=== PATIENT | male | born 1985 | race Hispanic/Latino ===

== ENCOUNTER 2018-05-17 13:04 | Emergency (ER) | payer BC, SELFPAY ==
[2018-05-17 13:06] VITALS: BP 139/95; PULSE 80; RESP 14; TEMP 36.8; O2SAT 97; BMI 39.8
--- NOTE | 2018-05-17 15:08 | CT_ITS ---
STUDY: CT ABDOMEN AND PELVIS WITH CONTRAST REASON FOR EXAM: Male, 32 years old. Right upper quadrant pain. RADIATION DOSAGE (If Supplied By Facility): CTDIvol = ( 17.07 ) mGy, DLP = ( 1451.82 ) mGycm TECHNIQUE: Transaxial images were obtained from the dome of the diaphragm to the symphysis pubis without oral contrast. 100 ml of Isovue 300 contrast was administered. Sagittal and coronal images were reconstructed. Individualized dose optimization techniques were used for this CT. COMPARISON: None. FINDINGS: The visualized lung bases are unremarkable. The visualized portions of the heart are within normal limits. There is decreased attenuation of the liver consistent with steatosis. There is mild hepatomegaly. There is non-visualization of the gallbladder, which may be secondary to either contraction or a prior cholecystectomy. Normal spleen. Normal pancreas. Normal bilateral adrenal glands. Normal right kidney. Normal left kidney. Normal visualized stomach. Normal small intestine. Normal colon. The appendix is visualized and appears normal. Normal abdominal aorta. Normal inferior vena cava. Normal retroperitoneum. Normal urinary bladder. Normal abdominal wall. Normal osseous structures. CT/Abdomen/Pelvis WITH Contrast IMPRESSION: Fatty infiltration of the liver associated with mild hepatomegaly. Electronically Signed: Elma Romero MD at 17:39 EST Tel , Service support ,
--- NOTE | 2018-05-17 15:11 | ED.VISSUMM ---
- ER Visit Summary Date of Service: 05/17/18 Chief Complaint: Abdominal pain, vomiting diarrhea History of Present Illness: The patient is a 32 M who presents for 5 days of watery diarrhea, vomiting and right upper quadrant abdominal pain. Patient states symptoms are worse after meals. He has discomfort in the right upper quadrant and a burning sensation in the epigastrium, but is exacerbated by food. He then will have foul-smelling belches and watery diarrhea. He has had vomiting as well. He tried antacids without relief. Symptoms are improved by not eating, and patient has not eaten anything today due to his symptoms. He still has had discomfort. He had a similar episode of 3 days of symptoms last week that resolved. Patient is status post cholecystectomy. He denies fever, chest pain, shortness of breath, URI symptoms, urinary symptoms, radiation of pain into the back or other parts of the abdomen. No medical history, no alcohol use, no recent travel, no recent antibiotic use. Physical Examination: Vital signs: afebrile, hemodynamically stable, no hypoxia on room air General: well nourished, well developed, in no distress Skin: warm, dry, no rash, no pallor HEENT: normocephalic and atraumatic; PERRL, EOMI, moist mucous membranes Cardiovascular: regular rate and rhythm without murmurs, no peripheral edema, 2+ pulses all distal extremities Respiratory: No increased work of breathing, lungs are clear to auscultation bilaterally, no rales, rhonchi or wheezing Abdominal: Abdomen is soft, tender in the right upper quadrant with hyperactive bowel sounds, no guarding or rebound, no masses MSK: Moves all extremities, no deformities, normal strength Neuro: Awake and alert, oriented ?4. No facial droop, sensation and motor function intact and symmetric Test Results: Abnormal Lab Results 05/17/18 05/17/18 15:30 15:30 WBC 6.8 RBC 5.60 Hgb 16.2 Hct 47.8 MCV 85.4 MCH 28.9 MCHC 33.9 RDW 13.5 RDW Differential 41.5 Plt Count 274 MPV 10.9 Immature Gran % (Auto) 0.100 Neut % (Auto) 54.9 Lymph % (Auto) 29.9 [place] % (Auto) 6.8 Eos % (Auto) 8.2 H Baso % (Auto) 0.1 Absolute Neuts (auto) 3.7 Absolute Lymphs (auto) 2.03 Total Counted Not Reportable Sodium 141 Potassium 3.9 Chloride 107 Carbon Dioxide 27.0 Anion Gap 7 BUN 16 Creatinine 0.91 Estim Creat Clear Calc 119.22 Est GFR (MDRD) Af Amer 123 Est GFR (MDRD) Non-Af 102 BUN/Creatinine Ratio 17.6 Glucose 81 Calcium 8.6 Total Bilirubin 0.50 AST 22 ALT 60 Alkaline Phosphatase 86 Total Protein 7.6 Albumin 3.9 Globulin 3.7 Albumin/Globulin Ratio 1.1 Lipase 95 Clinical Impression(s) from Imaging Studies Abdomen/Pelvis CT 05/17/18 15:08 IMPRESSION: Fatty infiltration of the liver associated with mild hepatomegaly. Electronically Signed: Elma Romero MD at 17:39 EST Tel , Service support , Medications Given Discontinued Medications Sodium Chloride () 1,000 mls @ 1,000 mls/hr IV .Q1H ONE Stop: 05/17/18 16:06 Last Admin: 05/17/18 15:29 Dose: 1,000 mls/hr Ketorolac Tromethamine (Toradol) 30 mg IV X1 ONE Stop: 05/17/18 15:08 Last Admin: 05/17/18 15:29 Dose: 30 mg Ondansetron HCl (Zofran) 4 mg IV X1 ONE Stop: 05/17/18 15:08 Last Admin: 05/17/18 15:30 Dose: 4 mg Emergency Department Course and Treatment: Patient was given IV fluids due to fluid loss from vomiting and diarrhea. He was given Toradol and Zofran for symptomatic relief. Labs and CT abdomen and pelvis were performed to look for any colitis, pancreatitis, possible common bile duct pathology, or other acute intra-abdominal process. Patient's labs showed no leukocytosis, no significant electrolyte derangements, no hepatic derangements, and a normal lipase. CT of the abdomen and pelvis were remarkable only for hepatic steatosis. Patient was reevaluated and was feeling better. We discussed the results of his CT scan and that he should follow-up with his doctor to discuss the possibility of needing an upper endoscopy. Patient was discharged on omeprazole and sucralfate. He was given follow-up with GI as well. Patient agreed with this plan was discharged home in improved condition. Treatment Plan: [] Disposition: [] Impression: Gastritis, hepatic steatosis This note was generated with [employer] dictation software. It may contain incorrect words, spelling, and punctuation that were not noted in review of the chart prior to signing ED Disposition - Plan for ED Patient: Disposition: Home or Assisted Living Chief Complaint: Abd Pain Instructions: ED Gastritis Prescriptions: RX: Omeprazole 40 mg PO DAILY #30 capsule.dr RX: Sucralfate 1 gm PO 4X/DAY #56 tab Referrals: Vega Bianchi MD [Primary Care Provider] - 3-5 Days Rajendra Harrell MD [NON-STAFF] - 1 Week if not improving Additional Instructions: Use the omeprazole daily and the sucralfate 4 times daily to help with upset stomach. You may need an upper endoscopy, where a camera is used to look in your stomach, to see if there are other causes of your abdominal pain. Please follow-up with your doctor and/or with a diamond die polisher for further workup. If you have any worsening of your condition or any new concerning symptoms, please return immediately to the emergency department for another evaluation.
[2018-05-17] MEDS: 0.9% Normal Saline 1,000 ML 1000 ML IV (15:29)
[2018-05-17] MEDS: Ketorolac 30 MG/ML Syringe IV (15:29)
[2018-05-17] MEDS: Ondansetron 4 MG/2 ML Vial IV (15:30)
[2018-05-17 15:55] LABS: Absolute Lymphocyte Count 2.03 X10^3/ul (0.83-4.51); Absolute Neutrophil Count 3.7 X10^3/uL (2.0-7.7); Basophil# 0.01 X10^3/uL; Basophil% 0.1 % (0-1); Eosinophil# 0.56 X10^3/uL; Eosinophils% 8.2 % (0-5); Hematocrit 47.8 % (40-54); Hemoglobin 16.2 g/dl (13.0-16.5); Lymphocyte # 2.03 X10^3/ul (4.0); Lymphocyte % 29.9 % (19-41); Mean Corp Hgb Conc 33.9 g/gl (32-36); Mean Corpuscular Hgb 28.9 pg (27.0-32.0); Mean Corpuscular Volume 85.4 fL (80-94); Mean Platelet Vol. 10.9 fl (6.2-12.0); Monocyte# 0.46 X10^3/uL; Monocyte% 6.8 % (0-10); Neutrophil # 3.72 X10^3/uL (2.7-7.7); Neutrophil % 54.9 % (47-70); Platelet Count 274 K/mm3 (150-450); RBC Distribution Width CV 13.5 % (11.6-14.6); RBC Distribution Width SD 41.5 fl (35.1-43.9); White Blood Count 6.8 K/mm3 (4.4-11.0)
[2018-05-17 15:58] LABS: POSITIVE COUNT NO; POSITIVE DIFFERENTIAL NO; POSITIVE MORPHOLOGY NO
[2018-05-17 16:24] LABS: ALB/GLOB Ratio 1.1 RATIO (0.9-2.4); AST(SGOT) 22 U/L (15-37); Alanine Aminotransfer ALT/SGPT 60 U/L (16-61); Albumin, Serum 3.9 g/dL (3.2-5.0); Alkaline Phosphatase 86 U/L (45-117); Anion Gap 7 (5-15); BUN 16 mg/dL (7-18); BUN/Creat Ratio 17.6 RATIO (10-20); Calcium,Total 8.6 mg/dL (8.5-10.1); Chloride 107 mmol/L (98-107); Creatinine, Serum 0.91 mg/dL (0.70-1.30); EST Glomerular Filtration Rate 102 mL/min (>60); Est Glom Filt Rate - Afr Amer 123 mL/min (>60); Estimated Creatinine Clearance 119.22 ml/min; Globulin 3.7 g/dL (2.2-4.2); Glucose 81 mg/dL (74-106); Lipase 95 U/L (73-393); Potassium 3.9 mmol/L (3.5-5.1); Protein, Total 7.6 g/dL (6.4-8.2); Sodium Level 141 mmol/L (136-145)
[2018-05-17 16:55] VITALS: RESP 14
--- NOTE | 2018-05-17 18:17 | DCINST.ED_ITS ---
ED Disposition - Plan for ED Patient: Disposition: Home or Assisted Living Chief Complaint: Abd Pain Instructions: ED Gastritis Prescriptions: Omeprazole 40 mg PO DAILY #30 capsule. Sucralfate 1 gm PO 4X/DAY #56 tab Referrals: Vega Bianchi MD [Primary Care Provider] - 3-5 Days Rajendra Harrell MD [NON-STAFF] - 1 Week if not improving Additional Instructions: Use the omeprazole daily and the sucralfate 4 times daily to help with upset stomach. You may need an upper endoscopy, where a camera is used to look in your stomach, to see if there are other causes of your abdominal pain. Please follow-up with your doctor and/or with a linux server engineer for further workup. If you have any worsening of your condition or any new concerning symptoms, please return immediately to the emergency department for another evaluation.
[2018-05-17 18:51] VITALS: PULSE 77; RESP 12; O2SAT 97
== END 2018-05-17 18:51 | disposition home or self-care (01) ==
PROVIDERS: Emergency Provider Emergency Medicine; Family Provider Family Medicine; PCP Family Medicine
DX: K29.70 Gastritis, unspecified, without bleeding (principal); K76.0 Fatty (change of) liver, not elsewhere classified; E66.9 Obesity, unspecified; Z90.49 Acquired absence of other specified parts of digestive tract
CPT/HCPCS: 74177; 80053; 83690; 85025; 96361; 96374; 96375; 99283; J7030; Q9967; J2405

== ENCOUNTER 2018-07-09 08:44 | Emergency (ER) | payer BC, SELFPAY ==
[2018-07-09 08:46] VITALS: BP 112/85; PULSE 117; RESP 13; TEMP 35.8; O2SAT 95; BMI 37.3
--- NOTE | 2018-07-09 09:14 | ED.DCSUM_ITS ---
- ER Visit Summary Date of Service: 07/09/18 Chief Complaint: Abdominal pain History of Present Illness: The patient is a 32 M who presents with abdominal pain of several months duration. Patient states that since March he gets a sharp right upper quadrant pain that seems to travel to the epigastrium followed shortly thereafter by significant diarrhea. He notes nausea and vomiting. He notes food does not taste good. He notes significant indigestion. Last vomited this morning. He states that he saw primary care. He was in the emergency department in May had negative labs and a negative CT. He is seeing gastroenterology. He states that they have done a hepatitis panel that was negative as well as H. pylori and gluten testing that was negative. He states that he has a 20 pound weight loss over the past 4 weeks. He states that on Thursday he is scheduled to have a endoscopy and colonoscopy with Dr. Krause. He has had prior cholecystectomy and umbilical hernia. He states that this morning he had more severe pain than normal. It got better after bowel movement here in the department. Physical Examination: Afebrile noted tachycardia at 117 Gen: Well-nourished well-developed Head: Normocephalic atraumatic Eyes: Perrl EOMI ENT: TMs clear no rhinorrhea moist mucous membranes Neck: Supple no lymphadenopathy no JVD nontender CVS: Regular rate rhythm no murmurs normal S1-S2 Respiratory: No distress clear to auscultation bilaterally chest nontender Abdomen: Soft nontender nondistended normal bowel sounds no masses Back: Nontender Extremity: Nontender no edema Skin: Normal color no rash Neuro: alert orientated ?3 CN II-XII intact normal strength sensation reflexes gait cerebellar Psych: Normal affect normal mood Test Results: CBC CMP and lipase were normal. Emergency Department Course and Treatment: She received Bentyl. Repeat examination shows his heart rate is 86. Patient appears stable and will be discharged home to continue his workup as an outpatient. Impression: 1. Abdominal pain This note was generated with [employer] dictation software. It may contain incorrect words, spelling, and punctuation that were not noted in review of the chart prior to signing ED Disposition - Plan for ED Patient: Disposition: Home or Assisted Living Instructions: ED Abdominal Pain Unkn Cause Prescriptions: Dicyclomine HCl [Bentyl] 10 mg PO TIDAC #20 cap Referrals: Wilfred Corbett MD [STAFF PHYSICIAN] - Keep Miguel appointment
[2018-07-09 09:41] LABS: Absolute Lymphocyte Count 1.33 X10^3/ul (0.83-4.51); Absolute Neutrophil Count 5.2 X10^3/uL (2.0-7.7); Basophil# 0.04 X10^3/uL; Basophil% 0.5 % (0-1); Eosinophil# 0.25 X10^3/uL; Eosinophils% 3.3 % (0-5); Hematocrit 49.5 % (40-54); Hemoglobin 16.6 g/dl (13.0-16.5); Lymphocyte # 1.33 X10^3/ul (4.0); Lymphocyte % 17.8 % (19-41); Mean Corp Hgb Conc 33.5 g/gl (32-36); Mean Corpuscular Hgb 28.4 pg (27.0-32.0); Mean Corpuscular Volume 84.6 fL (80-94); Mean Platelet Vol. 10.7 fl (6.2-12.0); Monocyte# 0.65 X10^3/uL; Monocyte% 8.7 % (0-10); Neutrophil % 69.6 % (47-70); POSITIVE COUNT NO; POSITIVE DIFFERENTIAL NO; POSITIVE MORPHOLOGY NO; Platelet Count 329 K/mm3 (150-450); RBC Distribution Width CV 13.6 % (11.6-14.6); RBC Distribution Width SD 41.9 fl (35.1-43.9); Red Blood Count 5.85 M/mm3 (4.6-6.2); White Blood Count 7.5 K/mm3 (4.4-11.0)
[2018-07-09 09:45] LABS: AST(SGOT) 24 U/L (15-37); Alanine Aminotransfer ALT/SGPT 56 U/L (16-61); Albumin, Serum 4.2 g/dL (3.2-5.0); Alkaline Phosphatase 101 U/L (45-117); Anion Gap 7 (5-15); BUN 20 mg/dL (7-18); BUN/Creat Ratio 21.4 RATIO (10-20); Calcium,Total 9.1 mg/dL (8.5-10.1); Chloride 110 mmol/L (98-107); Creatinine, Serum 0.94 mg/dL (0.70-1.30); EST Glomerular Filtration Rate 98 mL/min (>60); Est Glom Filt Rate - Afr Amer 119 mL/min (>60); Estimated Creatinine Clearance 115.41 ml/min; Globulin 4.3 g/dL (2.2-4.2); Glucose 98 mg/dL (74-106); Lipase 137 U/L (73-393); Potassium 3.8 mmol/L (3.5-5.1); Protein, Total 8.5 g/dL (6.4-8.2); Sodium Level 139 mmol/L (136-145)
[2018-07-09] MEDS: Dicyclomine 10 MG Capsule 20 MG PO (09:47)
[2018-07-09 10:48] VITALS: BP 116/79; PULSE 87; RESP 16; O2SAT 100
[2018-07-09 11:24] VITALS: BP 120/73; PULSE 65; RESP 14; O2SAT 98
== END 2018-07-09 11:27 | disposition home or self-care (01) ==
PROVIDERS: Emergency Provider Emergency Medicine; Family Provider Family Medicine; PCP Family Medicine
DX: R10.9 Unspecified abdominal pain (principal); R11.2 Nausea with vomiting, unspecified; R19.7 Diarrhea, unspecified; Z90.49 Acquired absence of other specified parts of digestive tract
CPT/HCPCS: 80053; 83690; 85025; 96372; 99283; A4216

== ENCOUNTER 2018-07-12 10:32 | Day surgery (SDC) | payer BC, SELFPAY ==
[2018-07-12 10:51] VITALS: BP 141/87; PULSE 71; RESP 16; TEMP 36.7; BMI 37.3
[2018-07-12 11:07] VITALS: BP 141/87; PULSE 71; RESP 16; TEMP 36.7; O2SAT 100; BMI 37.3
--- NOTE | 2018-07-12 11:15 | COLBX_PTH ---
PATIENT: JENY ATWOOD LOC: EN U#:[id number] AGE/SX: 32/M ROOM: RE07/12/[address]: Dr. Navya Mack MD : 1985 BED: DIS: 07/12/2018 SPEC #: [id number] RECD: 07/12/18 13:24 STATUS: CHRISTIANO MARICARMEN #: [id number] LILIANA: 07/12/18 11:[address]: Navya Mack DEPT: SURGICAL PATHOLOGY RECD BY: Adiel Terrell ENTERED: 07/12/18 14:01 SP TYPE: COLON BX OTHR DR: Dr. Vega Bianchi MD Tissues: A - Duodenum, NOS B - Gastric mucous membrane C - Gastric mucous membrane D - COLON BIOPSY Procedures: Special Stain Group II Surgery Specimen Level IV Alcian Blue/PAS (control) HEADER OPERATION: [place] [place] DIAGNOSIS: Functional bowel disorder and RUQ pain TISSUE SUBMITTED: A - Second portion of duodenum biopsy, B - Antral biopsy for histo and H. pylori, C - GE junction biopsy, D - Random colon biopsies MICROSCOPIC DIAGNOSIS A. Second portion of duodenum, biopsy: Fragments of duodenal mucosa with moderate nonspecific chronic inflammation. B. Antral biopsy: Mild gastritis. See microscopic description and comment. C. GE junction, biopsy: A fragment of gastric mucosa with chronic inflammation. Intestinal metaplasia (goblet cell metaplasia) is not identified. See comment. D. Colon, random biopsy: Fragments of colonic mucosa, no pathologic diagnosis. SJ:marcelo 07/13/18 COMMENT B. The results of immunohistochemistry for Helicobacter pylori will be reported separately ([id number]). C. Alcian blue/PAS stain with matched control is used in the evaluation of the specimen. MICROSCOPIC DESCRIPTION Slides are reviewed. B. The specimen shows fragments of gastric mucosa with chronic inflammatory cell infiltrates in the lamina propria consisting of lymphocytes and plasma cells, consistent with mild chronic gastritis. GROSS DESCRIPTION A - Received in fixative is one container labeled with the patient's name and designated second portion duodenum biopsy. The specimen consists of multiple irregular fragments of light lim soft tissue that in aggregate measure 1 x 0.2 x 0.1 cm. The specimen is totally submitted in one cassette. B - Received in fixative is one container labeled with the patient's name and designated antral biopsy. The specimen consists of one irregular fragment of light lim soft tissue that measures 0.3 x 0.3 x 0.1 cm. The specimen is totally submitted in one cassette. C - Received in fixative is one container labeled with the patient's name and designated GE junction biopsy. The specimen consists of one irregular fragment of light lim soft tissue that measures 0.3 x 0.2 x 0.1 cm. The specimen is totally submitted in one cassette. D - Received in fixative is one container labeled with the patient's name and designated random colon biopsy. The specimen consists of multiple irregular fragments of light lim soft tissue that in aggregate measure 2 x 0.5 x 0.1 cm. The specimen is totally submitted in one cassette. / SJ:rg 07/12/18 TC:3 CPT: 18180 x4, 71891
--- NOTE | 2018-07-12 11:15 | IMM_PTH ---
PATIENT: JENY ATWOOD LOC: EN U#:[id number] AGE/SX: 32/M ROOM: RE07/12/[address]: Dr. Navya Mack MD : 1985 BED: DIS: 07/12/2018 SPEC #: [id number] RECD: 07/12/18 14:39 STATUS: CHRISTIANO REBlanca #: [id number] LILIANA: 07/12/18 11:[address]: Navya Mack DEPT: IMMUNOHISTOCHEMISTRY RECD BY: Kellee Neal ENTERED: 07/12/18 14:40 SP TYPE: IMMUNO OTHR DR: Dr. Vega Bianchi MD Tissues: B - Stomach, NOS Procedures: H Pylori (initial) PHYSICIAN & INSTITUTION [place] [address] SPECIMEN INFORMATION: Tissue Source: B - Antral biopsy Clinical Info: Functional bowel disorder and RUQ pain Specimen Number: [id number] CPT code: 71713 METHODOLOGY: Deparaffinized sections of prefer/formalin-fixed tissue or PAP/DQ stained slides are incubated with monoclonal/polyclonal antibodies/oligonucleotide probes. Localization is made via biotin free immunoperoxidase method. Appropriate controls are performed and reacted as expected. Results on target cell population are indicated in the following table: RESULTS: ANTIBODY / CLONE RESULT Block B H Pylori (polyclonal) negative These tests were developed and their performance characteristics determined by [facility]. They may not have been cleared or approved by the U.S. Food and Drug Administration. The FDA has determined that such clearance or approval is not necessary. INTERPRETATION: B. Antral biopsy: Negative for Helicobacter pylori organisms. AM:marcelo 07/14/18
[2018-07-12 11:55] VITALS: BP 112/65; BP 141/87; PULSE 87; RESP 16; TEMP 36.9; O2SAT 100
--- NOTE | 2018-07-12 11:57 | OP.ENDO_ITS ---
07/12/2018 Vega Bianchi [address] [place] [address] Re : Upper GI endoscopy procedure for Mac Colon Robert Dear Dr. Bianchi This procedure was performed on Thursday, July 12, 2018. My impressions and recommendations are as follows: Impressions : - Z-line irregular. Biopsied. - Normal stomach. Biopsied. - Normal first portion of the duodenum and second portion of the duodenum. Biopsied. Recommendations : - Discharge patient to home (ambulatory). - Resume previous diet. - Continue present medications. - Return to GI office after studies are complete. My findings are described in the full procedure note, which is enclosed. If I can be of further assistance, please feel free to contact me at Doctor phone number(s): , Work: . Sincerely, MD Navya Edwards MD 07/12/2018 11:56:51 AM This report has been signed electronically.
[2018-07-12 12:00] VITALS: BP 141/87; PULSE 83; RESP 16; O2SAT 96
--- NOTE | 2018-07-12 12:00 | OP.ENDO_ITS ---
07/12/2018 Vega Bianchi [address] [place] [address] Re : Colonoscopy procedure for Mac Colon Robert Dear Dr. Bianchi This procedure was performed on Thursday, July 12, 2018. My impressions and recommendations are as follows: Impressions : - Non-bleeding internal hemorrhoids. - Biopsies were taken with a cold forceps from the entire colon for evaluation of microscopic colitis. Recommendations : - Discharge patient to home (ambulatory). - Resume previous diet. - Continue present medications. - Await pathology results. - Return to GI office after studies are complete - call for appointment in 1-2 weeks. - No repeat colonoscopy due to age. My findings are described in the full procedure note, which is enclosed. If I can be of further assistance, please feel free to contact me at Doctor phone number(s): , Work: . Sincerely, MD Navya Edwards MD 07/12/2018 11:59:31 AM This report has been signed electronically.
[2018-07-12 12:05] VITALS: BP 108/72; BP 141/87; PULSE 78; RESP 16; O2SAT 99
[2018-07-12 12:10] VITALS: BP 106/62; BP 141/87; PULSE 76; RESP 16; TEMP 36.3; O2SAT 96
== END 2018-07-12 12:35 | disposition home or self-care (01) ==
LOC: EN 10:33 → AC 10:35
PROVIDERS: Family Provider Family Medicine; PCP Family Medicine; Referring Provider Family Medicine; Visit Provider Surgery
PROC: 0DJD8ZZ Inspection of Lower Intestinal Tract, Via Natural or Artificial Opening Endoscopic (ICD-10-PCS; CPT 45378; principal; 2018-07-12 11:10)
DX: R10.9 Unspecified abdominal pain (principal); K22.8 Other specified diseases of esophagus; K30 Functional dyspepsia; K64.8 Other hemorrhoids; G47.33 Obstructive sleep apnea (adult) (pediatric); K59.1 Functional diarrhea; Z90.49 Acquired absence of other specified parts of digestive tract
CPT/HCPCS: 43239; 45380; 88305; 88313; 88342; J7120

== ENCOUNTER 2025-03-12 16:30 | Emergency (ER) | payer OTHER, SELFPAY ==
[2025-03-12 16:31] VITALS: BP 133/93; PULSE 88; RESP 20; TEMP 36.1; O2SAT 98; BMI 42.5
--- NOTE | 2025-03-12 16:32 | RAD_ITS ---
PROCEDURE: RAD/Ankle min 3 Views
[2025-03-12 17:47] VITALS: BP 133/93; PULSE 88; RESP 20; TEMP 36.1; O2SAT 98
--- NOTE | 2025-03-12 17:55 | EX.ED.DYSGE1 ---
HPI History of Present Illness Chief Complaint: Lower Extremity Injury Detail of Chief Complaint: Injury left ankle Informant: patient Onset/Context/Timing Onset: Today and Hours Context: Sudden Onset Timing: Continuous Quality: Pain outside left ankle Location: Outer left ankle Current Severity: Mild Maximum Severity: Moderate Worsened by: Palpation and weightbearing Relieved by: Nothing Associated Symptoms Associated Symptoms: None Narrative Narrative: Patient is a 39-year-old male with history of diabetes. He presents with injury to his left ankle. He was hiking. He had a plantar inversion mechanism injury. He localizes the pain to the lateral malleolus. He denies paresthesia, anesthesia buttocks. He denies history peptic ulcer disease, kidney disease or hypertension. He was diagnosed with diabetes 2 years ago. He denies prior injury to the ankle. Prior similar symptoms: No Recent Illness/Hospitalization: No PFSH PFS Medical History Bursitis, prepatellar, left Left knee pain Hypercholesteremia Type 2 diabetes mellitus Right knee pain Home Medications ?Medication ?Instructions ?Recorded ?Last Taken ?Type atorvastatin 40 mg tablet 40 mg PO QDAY 06/13/24 Unknown History meloxicam 7.5 mg tablet 7.5 mg PO BID PRN swelling 2 weeks 06/13/24 Unknown Rx #30 tabs metformin 500 mg tablet,extended 1,000 mg PO QAM 06/13/24 Unknown History release 24 hr Allergy/AdvReac Type Severity Reaction Status Date / Time No Known Allergies Allergy Verified 03/12/25 16:30 Surgical History S/P lateral meniscus repair of left knee S/P cholecystectomy S/P hernia repair Social History Smoking Status: Never smoker ROS ROS ED Musculoskeletal Musculoskeletal: Reports other Details: Pain left ankle Integumentary Denies Abrasions or rash Neurologic Neurologic: Denies paresthesias or weakness Hematologic/Lymphatic Hematologic/Lymphatic: Reports systems reviewed and no addt'l complaints, except as documented EXAM Physical Exam Const Vital Signs: 03/12/25 16:31 03/12/25 17:47 Temperature 97 F L 97 F L Temperature Source Temporal Pulse Rate 88 88 Respiratory Rate 20 H 20 H Blood Pressure 133/93 H 133/93 H Blood Pressure Mean 106 106 Pulse Ox 98 98 Oxygen Delivery Method Room Air Positive well nourished and well developed General Appearance ED: well developed and NAD; Negative for pallor HEENT HEENT Narrative: HEENT is grossly unremarkable. Eyes PERRL and EOMs intact bilaterally General Eye ED: Negative for scleral icterus Resp normal respiratory effort Cardio regular rate and regular rhythm Extremity Negative for normal to inspection Extremity Narrative: There is swelling lateral aspect of the left ankle. There is pain ovation over the lateral malleolus, anterior talofibular ligament. There is no pain ovation of the calcaneofibular ligament or the medial malleolus. There is no laxity with drawer testing. There is no pain to palpation of the base of the fifth metatarsal. DP pulse is palpable. There is no abrasion or discoloration of the skin over the lateral malleolus. Neuro oriented x3 and CN's II-XII intact bilaterally Sensorium / Orientation: alert Skin no rashes or lesions noted, no wounds and skin turgor normal General Skin Exam: Negative for jaundice or pallor MDM MDM MDM Narrative Medical decision making narrative: X-ray was obtained per nursing protocol. Differential is sprain versus fracture. Radiography Chest X-Ray - ED: Read by ED Physician (Three-view x-ray of the ankle was independent reviewed interpreted by me as negative for fracture, subluxation or dislocation. There is no asymmetry of the mortise. There is no evidence of fracture the base of the fifth metatarsal.) Diagnostic Testing: Clinical Impression(s) from Imaging Studies Ankle X-Ray 03/12/25 16:32 IMPRESSION: As above. [facility] Triage Chief Complaint: Lower Extremity Injury ED Provider: Trae Sahu Dx/Rx/DC Orders Clinical Impression: Sprain of anterior talofibular ligament of left ankle, Type 2 diabetes mellitus, Elevated blood pressure reading without diagnosis of hypertension Instructions: ED Ankle Sprain (Adult) Prescriptions: No Action metformin 500 mg tablet extended release 24 hr 1,000 mg PO QAM atorvastatin 40 mg tablet 40 mg PO QDAY meloxicam 7.5 mg tablet 7.5 mg PO BID MDD 2 PRN (Reason: swelling) 14 Days Qty: 30 1RF Primary Care Provider: Lala Kiran Referrals: Lala Kiran MD [Primary Care Provider, Internal Medicine] - 10-14 Days if not better Activity Restrictions/Additional Instructions: 1. Ice to left ankle 6-10 times a day. 2. Wear a flat shoe until you are pain-free. 3. Drawl the alphabet with your left foot 4 times a day. Print Language: Nicaraguan Disposition Disposition: Home, Self Care
== END 2025-03-12 18:15 | disposition home or self-care (01) ==
PROVIDERS: Emergency Provider Emergency Medicine; PCP Internal Medicine; Visit Provider Emergency Medicine
DX: S93.492A Sprain of other ligament of left ankle, initial encounter (principal); E11.9 Type 2 diabetes mellitus without complications; E78.00 Pure hypercholesterolemia, unspecified; R03.0 Elevated blood-pressure reading, without diagnosis of hypertension; X50.9XXA Other and unspecified overexertion or strenuous movements or postures, initial encounter; Y93.01 Activity, walking, marching and hiking
CPT/HCPCS: 73610; 99282